=== PATIENT | male | born 1965 | race Hispanic/Latino ===

== ENCOUNTER 2023-02-10 09:18 | Outpatient (CLI) | payer OTHER | END 2023-02-10 09:19 | disposition home or self-care (01) | LOC: BICRAD 09:18 | PROVIDERS: ATTEND Specialist | DX: S91.301A Unspecified open wound, right foot, initial encounter (principal); M86.8X7 Other osteomyelitis, ankle and foot; M79.89 Other specified soft tissue disorders ==